=== PATIENT | female | born 2000 | race Caucasian/White ===

== ENCOUNTER → 2022-10-27 | Outpatient (CLI) | payer OTHER | LOC: M RAD 08:14 | PROVIDERS: ATTEND Nurse Practitioner Family | DX: R10.9 Unspecified abdominal pain (principal) ==

== ENCOUNTER 2024-08-21 18:24 | Emergency (ER) | payer OTHER ==
[~2024-08-21] VITALS: Ht 162.6 cm; Wt 92.2 kg
[2024-08-21] MEDS: methocarbamoL 750 MG TAB PO ONE (23:49)
[2024-08-21] MEDS: ONDANSETRON 4MG ORAL DISINTEGRATING TAB PO ONE (23:49)
[2024-08-21] MEDS: KETOROLAC 30 MG/ML 1ML VIAL IM ONE (23:50)
[2024-08-22] MEDS ORDERED: CYCL-707 PO (00:31)
[2024-08-22] MEDS ORDERED: ONDA-282 PO (00:31)
[2024-08-22 00:40] VITALS: BP 110/69; TEMP 97.6; O2SAT 100
== END 2024-08-22 00:42 | disposition home or self-care (01) ==
LOC: M ED 18:24
DX: S06.0X0A Concussion without loss of consciousness, initial encounter (principal); S00.93XA Contusion of unspecified part of head, initial encounter; M54.50 Low back pain, unspecified; W01.198A Fall on same level from slipping, tripping and stumbling with subsequent striking against other object, initial encounter; Y92.89 Other specified places as the place of occurrence of the external cause; Y93.89 Activity, other specified; Y99.0 Civilian activity done for income or pay; Z79.83 Long term (current) use of bisphosphonates; Z79.899 Other long term (current) drug therapy
CPT/HCPCS: 70450; 70480; 96372; 99283; J1885